=== PATIENT | female | born 1960 | race African-American/Black ===

== ENCOUNTER 2017-07-20 05:11 | Inpatient (IN) | payer OTHER ==
[2017-07-17 10:32] VITALS: BMI 37.2
[2017-07-20 12:41] LABS: INR 1.09 (0.82-1.09); PROTHROMBIN TIME (PATIENT) 12.3 SEC (9.7-13.0)
[2017-07-20] MEDS ORDERED: MIDAZOLAM HCL 2 MG/2 ML SINGLE DOSE VIAL ONE (18:26)
[2017-07-20] MEDS ORDERED: PROPOFOL 20 ML ONE ×8 (18:31→20:57)
[2017-07-20] MEDS ORDERED: KETAMINE HCL 200 MG/20 ML VIAL ONE (18:33)
[2017-07-20] MEDS ORDERED: ceFAZolin SODIUM 1 GM VIAL ONE (18:36)
[2017-07-20] MEDS ORDERED: VANCOMYCIN 1,000 MG VIAL (RESTRICTED TO ID ONLY) ONE (18:36)
[2017-07-20] MEDS ORDERED: DEXAMETHASONE SOD PHOSPHATE 4 MG/1 ML VIAL ONE (18:40)
[2017-07-20] MEDS ORDERED: ONDANSETRON 4 MG/2 ML VIAL IVPUSH PRN ×2 (18:48→21:26)
[2017-07-20] MEDS ORDERED: THROMBIN (BOVINE) 5,000 UNIT VIAL TP ONE ×2 (18:59→19:11)
[2017-07-20] MEDS ORDERED: LACTATED RINGERS SOLUTION 1,000 ML IV SCH (19:00)
[2017-07-20] MEDS ORDERED: GLYCOPYRROLATE 0.2 MG/1 ML VIAL ONE (19:34)
[2017-07-20] MEDS ORDERED: ceFAZolin SODIUM 1 GM VIAL IVPB ONE (19:41)
[2017-07-20] MEDS ORDERED: VANCOMYCIN 1,000 MG VIAL (RESTRICTED TO ID ONLY) IVPB ONE (19:43)
[2017-07-20] MEDS ORDERED: ePHEDrine SULFATE 50 MG/1 ML AMPULE ONE (19:44)
[2017-07-20] MEDS ORDERED: LIDOCAINE HCL/PF 2% SDV 5ML VIAL ONE (19:53)
--- NOTE | 2017-07-20 21:23 | OP ---
Operative Note - Note: Operative Date: 07/20/17 Pre-Operative Diagnosis: Cervical spondylotic myelopathy Operation: C4-C5 ACDF Surgeon: Jayce Miranda Assistant Men'S Lacrosse Coach: Anuj Miranda Anesthesiologist/GROUP CAPTAIN: Walter Madrigal Anesthesia: General Specimens Removed: C4-C5 disk Estimated Blood Loss (mls): 30 Fluid Volume Replaced (mls): 1,000 Operative Report Dictated: Yes
--- NOTE | 2017-07-20 21:25 | PN ---
Progress Note (short form) - Note Progress Note: 56F s/p C4-C5 ACDF POD #0. -Admit to ICU x 24 hrs. for airway observation; OK to downgrade to floor 2017 if airway stable. -Pain medication: per anaesthesia team. -DVT PPx: -Mechanical only: ERIK's, SCD's. -Incentive spirometry. -PT/OT/Rehab, OOB. -WBAT B/L UE & LE. -Keep dressing clean & dry. -No heavy lifting, bending or twisting. -Puree diet; advance as tolerated. -B/L UE & LE NV checks. -Care per primary medical hospitalist team. -Discharge planning: f/u [facility] [place] office 07/30/2017; call for appointment; . -Will follow. Jayce Miranda MD (Orthopaedic Surgery).
[2017-07-20] MEDS ORDERED: oxyCODONE HCL 5 MG TABLET PO PRN ×2 (21:26)
[2017-07-20] MEDS ORDERED: diazePAM CARPU-JECT 10 MG/2 ML DISP.SYRIN IVPUSH PRN (21:26)
[2017-07-20] MEDS ORDERED: traMADol HCL 50 MG TABLET PO PRN (21:26)
[2017-07-20] MEDS: HYDROmorphone *PCA* 10MG/50ML DISP.SYRIN PCA SCH (21:45)
[2017-07-20] MEDS ORDERED: HYDROmorphone *PCA* 10MG/50ML DISP.SYRIN PCA ONE (21:49)
[2017-07-20] MEDS ORDERED: diazePAM 5 MG TABLET PO PRN (22:54)
[2017-07-20] MEDS: LACTATED RINGERS SOLUTION 1,000 ML IV SCH (23:00)
--- NOTE | 2017-07-20 23:08 | CONSULT ---
Consult Consult Specialty:: pulm critical care Referred by:: Dr. Jayce Miranda Reason for Consultation:: s/p C4-C5 ACDF - History of Present Illness Chief Complaint: s/p C4-C5 ACDF POD #0 History of Present Illness: This is a 56 yo woman with pmhx of asthma, HTN, recent right knee injury at work, now in brace on workers comp, and worsening chronic neck pain over the course of two years despite injections and pain meds. She endorses right neck pain that radiates to her right arm and hand with associated numbness and tingling, and difficulty rotating her head. She is now s/p C4-C5 ACDF POD #[address] Miranda. transferred to ICU for further monitoring. -Tylenol IV PRN for pain -Incentive spirometry -PT/OT/Rehab, OOB -WBAT B/L UE & LE -B/L UE & LE NV checks -Keep dressing clean & dry -No heavy lifting, bending or twisting -Puree diet; advance as tolerated -DVT PPx:ERIK, SCD -Dispo: downgrade to floor tomorrow if airway stable - History Source History Provided By: Patient, Medical Record Limitations to Obtaining History: No Limitations - Past Medical History DEPUTY DIRECTOR: No: Alzheimer's, CVA, Dementia, Migraine, Multiple Sclerosis, Peripheral Neuropathy, Parkinson's, Seizure, Syncope, TIA, Vertigo, Other Cardio/Vascular: Yes: HTN Pulmonary: Yes: Asthma Gastrointestinal: No: Ascites, Cancer, Constipation, Crohn's Disease, Diverticulitis, Diverticulosis, Esophageal Varices, Gastritis, GERD, GI Bleed, Hemorrhoids, Hiatal Hernia, Inflamatory Bowel Disease, Irritable Bowel Disease, Pancreatitis, Peptic Ulcer Disease, Ulcerative Colitis, Other Hepatobiliary: No: Cirrhosis, Cholelithiasis, Cholecystitis, Choledocholithiasis , Hepatitis A, Hepatitis B, Hepatitis C, Other Renal/: No: Renal Failure, Renal Inusuff, BPH, Cancer, Hematuria, Hemodialysis , Neurogenic Bladder, Renal Calculi, UTI, Other Reproductive: Yes: Other (total abdominal hysterectomy) ...: No Heme/Onc: No: Anemia, B12 Deficiency, Bleeding Disorder, Cancer, Current Chemotherapy, Current Radiation Therapy, Hemochromatosis, Hypercoaguable State, Myeloproliferative Synd, Sickle Cell Disease, Sickle Cell Trait, Thrombocytopenia, Other Infectious Disease: No: AIDS, C-Diff, Herpes Zoster, HIV, MRSA, STD's, Tuberculosis, VREF, Other Psych: No: Addictions, Anxiety, Bipolar, Depression, Panic, Psychosis, Schizophrenia, Other Musculoskeletal: Yes: Other (rt knee injury s/p trauma from milk crate on workers comp) Rheumatology: No: Fibromyalgia, Gout, Lupus, Rheumatoid Arthritis, Sarcoidosis, Vasculitis, Other ENT: No: Allergic Rhinitis, Sinusitis, Other Endocrine: No: Heriberto's Disease, Dago's Disease, Diabetes Insipidus, Diabetes Mellitus, Hyperparathyroidism, Hyperthyroidism, Hypothyroidism, Osteopenia, SIADH, Other Dermatology: No: Basal Cell, Cellulitis, Eczema, Melanoma, Psoriasis, Squamous Cell, Other - Past Surgical History Past Surgical History: Yes: Hysterectomy - Alcohol/Substance Use Hx Alcohol Use: Yes (occ) History of Substance Use: reports: None - Smoking History Smoking history: Never smoked Have you smoked in the past 12 months: No - Social History Usual Living Arrangement: Alone ADL: Independent History of Recent Travel: No Home Medications - Allergies Allergies/Adverse Reactions: Allergies Allergy/AdvReac Type Severity Reaction Status Date / Time shellfish derived Allergy Severe Hives Verified 07/20/17 13:04 Penicillins Allergy Mild Verified 07/20/17 13:04 - Home Medications Home Medications: Ambulatory Orders Cholecalciferol (Vitamin D3) [Vitamin D3 -] 50,000 unit PO DAILY 07/17/17 Lisinopril 15 mg PO DAILY 07/17/17 Omeprazole 40 mg PO DAILY 07/17/17 Tiotropium [place] [Spiriva] 1 mcg IH PRN PRN 07/17/17 Family Disease History - Family Disease History Family History: Unremarkable Review of Systems - Review of Systems Constitutional: reports: No Symptoms Eyes: reports: No Symptoms HENT: reports: No Symptoms Neck: reports: Pain on Movement, Stiffness Cardiovascular: reports: No Symptoms Respiratory: reports: No Symptoms Gastrointestinal: reports: No Symptoms Genitourinary: reports: No Symptoms Breasts: reports: No Symptoms Reported Integumentary: reports: No Symptoms Neurological: reports: No Symptoms, Numbness, Parasthesia, Other (tingling of right hand and arm) Endocrine: reports: No Symptoms Hematology/Lymphatic: reports: No Symptoms Psychiatric: reports: No Symptoms Physical Exam Vital Signs: Vital Signs Temperature 97.9 F 07/20/17 21:31 Pulse Rate 76 07/20/17 22:45 Respiratory Rate 18 07/20/17 22:45 Blood Pressure 146/82 07/20/17 22:45 O2 Sat by Pulse Oximetry (%) 100 07/20/17 22:45 Constitutional: Yes: Well Nourished, No Distress, Calm Eyes: Yes: WNL, Conjunctiva Clear, EOM Intact HENT: Yes: WNL, Atraumatic, Normocephalic Neck: Yes: WNL, Supple, Trachea Midline, Decreased ROM Cardiovascular: Yes: WNL, Regular Rate and Rhythm Respiratory: Yes: WNL, Regular, CTA Bilaterally Gastrointestinal: Yes: WNL, Normal Bowel Sounds ...Rectal Exam: Yes: WNL Renal/: Yes: WNL Breast(s): Yes: WNL Musculoskeletal: Yes: WNL Extremities: Yes: WNL Edema: No Peripheral Pulses WNL: Yes Integumentary: Yes: WNL Wound/Incision: Yes: Clean/Dry Neurological: Yes: WNL, Alert, Oriented. No: Numbness, Tingling ...Motor Strength: WNL Psychiatric: Yes: WNL Imaging - Results MRI: Report Reviewed (MRI CERVICAL SPINE: 06/11/17 shows straightening of the cervical lordosis, no compression fx, c3-4 small broad based central disc protrusion, c4-5 mild diffuse bulge with small focal superimposed central disc protrusion, c5-6 mild diffuse bulge which causes mild compression of the ventral aspect of the derick sac, c6-7 mild endplate degenerative changes which have increased from previous exam.) Problem List - Problems (1) Asthma Code(s): J45.909 - UNSPECIFIED ASTHMA, UNCOMPLICATED (2) Cervical spondylosis with myelopathy Code(s): M47.12 - OTHER SPONDYLOSIS WITH MYELOPATHY, CERVICAL REGION (3) S/P cervical discectomy Code(s): Z98.890 - OTHER SPECIFIED POSTPROCEDURAL STATES (4) Chronic hypotension Code(s): I95.89 - OTHER HYPOTENSION (5) Hypertension Code(s): I10 - ESSENTIAL (PRIMARY) HYPERTENSION
[2017-07-20] MEDS: ACETAMINOPHEN 325 MG TABLET (FP) PO SCH (23:35)
[2017-07-20] MEDS ORDERED: ACETAMINOPHEN 1000 MG/100 ML VIAL (NON FORMULARY) IVPB ONE (23:50)
[2017-07-21] MEDS: ceFAZolin 2 GRAM PREMIX BAG IVPB SCH ×2 (03:29→11:18)
[2017-07-21] MEDS: ACETAMINOPHEN 325 MG TABLET (FP) PO SCH ×3 (06:18→11:19)
[2017-07-21 06:45] LABS: HEMATOCRIT 36.4 % (32.4-45.2); HEMOGLOBIN 12.2 GM/dL (10.7-15.3); MCH 30.4 pg (25.7-33.7); MCHC 33.5 g/dl (32.0-36.0); MEAN CELL VOLUME 90.8 fl (80-96); MEAN PLT VOLUME 9.5 fl (7.5-11.1); PLATELET COUNT 278 K/MM3 (134-434); RBC 4.01 M/mm3 (3.60-5.2); RDW 14.6 % (11.6-15.6); WHITE BLOOD COUNT 10.1 K/mm3 (4.0-10.0)
[2017-07-21 07:07] LABS: CHLORIDE 101 mmol/L (98-107); POTASSIUM 4.3 mmol/L (3.5-5.1); SODIUM 136 mmol/L (136-145)
[2017-07-21 07:13] LABS: ANION GAP 7 (8-16); BLOOD UREA NITROGEN 14 mg/dL (7-18); CALCIUM 9.3 mg/dL (8.5-10.1); CO2 28 mmol/L (21-32); CREATININE 0.7 mg/dL (0.55-1.02); GLUCOSE,RANDOM 142 mg/dL (74-106)
[2017-07-21] MEDS ORDERED: ACETAMINOPHEN 1000 MG/100 ML VIAL (NON FORMULARY) IVPB ONE (07:29)
[2017-07-21] MEDS ORDERED: PT OWN MED DRAWER 7, Y5N ONE (09:35)
--- NOTE | 2017-07-21 09:55 | OP ---
DATE OF OPERATION: 07/20/2017 SURGEON: Jayce Miranda M.D. CONTENT STRATEGY LEAD: Anuj Miranda M.D. 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 OPERATION PERFORMED: 1. C4-5 anterior cervical diskectomy and fusion. 2. Partial corpectomy C4, partial corpectomy C5. ANESTHESIA: General. ANTIBIOTICS GIVEN: 2 g Kefzol, 1 g vancomycin, and 10 mg Decadron preoperative. OPERATION DETAILS: Patient correctly identified, brought in the operating room. Imaging was available for intraoperative evaluation. The cervical spine was prepped in a routine manner with Betadine scrub solution, wiped with alcohol, Duraprep applied. Window drape applied. The incision was made in the lines of Reji at the cricothyroid interval. The dissection was taken through to the platysma, the platysma was split longitudinally, and the investing layer of fascia opened with a Metzenbaum scissors. The area was dissected freely, and the plane between the viscera and vessels entered with digital palpation, right down to the anterior vertebral bodies with no difficulty. An Army-Olivarez was placed around the pharynx and larynx, a Cloward handheld retractor onto the longus colli on the lateral side. Using a unipolar Bovie, the longus colli was lifted off the bone bed of C4 and C5 appropriately, and a 90 degree spinal needle placed into the C4-5 disk, verifying the level of fixation. Two [place] pins were placed, one in C4 and one in C5 in the vertebral bodies. These were once again checked with lateral fluoroscopic x-ray and positioned well. Slight distraction employed under the microscope. The annulus was transected off the bone. The curettage and curetting of the bone was with a small curet, extending from left to right, revealing the jori lo typical appearance of the anterior interbody vertebral space once freed of all disk material. Using a 40-mm Midas Roberto bur, the lip of the anterior aspect of the C4 level was resected, right down to the disk level, and then likewise the uncovertebral joints on the upper endplate of C5 resected to create the rectangle necessary for appropriate exposure. The entire posterior longitudinal ligament was resected, exposing thecal from left to right. A partial corpectomy had been performed in order to achieve this clear vision appropriately in resection of these rectangles. Once this had been placed, the distraction enabled us to seat a Tetrafuse size 8 mm spacer, this was filled DBM putty. The plate was a size 40 mm Simplicity plate, 4 screws inserted, two proximally and two distally, solid fixation achieved, the locking device mobilized on the screw head. The wound was washed thoroughly, hemostasis thoroughly achieved. Closure investing lateral fascia and platysma 1 Vicryl, skin 3-0 Monocryl and Steri-Strips. No drains. Operation went well with no complications. MD ASAD Webber/[id number]
[2017-07-21] MEDS ORDERED: TIOTROPIUM BROMIDE 18 MCG CAPSULES IH SCH (10:00)
[2017-07-21] MEDS ORDERED: LISINOPRIL 5 MG TABLET (FP) PO SCH (10:00)
[2017-07-21] MEDS ORDERED: PANTOPRAZOLE 40 MG TABLET (FP) PO SCH (10:00)
--- NOTE | 2017-07-21 10:15 | PN ---
Physical Exam: SUBJECTIVE: Patient seen and examined oob to chair in ICU. Vomiting. OBJECTIVE: Vital Signs Period Temp Pulse Resp BP Sys/Bird Pulse Ox Last 24 Hr 97.8 F-98.4 F 62-88 11-20 108-155/66-95 78-100 GENERAL: The patient is awake, alert, and fully oriented, in mild distress from nausea and vomiting. NECK: Anterior neck surgical dressing c/d/i, not disturbed; airway patent, voice is clear and strong, no hoarseness LUNGS: Breath sounds equal, clear to auscultation bilaterally, no wheezes, no crackles, no accessory muscle use. HEART: Regular rate and rhythm, S1, S2 EXTREMITIES: 2+ pulses, warm, well-perfused, no edema. NEUROLOGICAL: Cranial nerves II through XII grossly intact. Normal speech, gait not observed. Laboratory Results - last 24 hr 07/20/17 07/20/17 07/20/17 12:13 12:13 12:13 WBC RBC Hgb Hct MCV MCH MCHC RDW Plt Count MPV PT with INR 12.30 INR 1.09 PTT (Actin FS) 37.2 H Sodium Potassium Chloride Carbon Dioxide Anion Gap BUN Creatinine Random Glucose Calcium Blood Type O POSITIVE Antibody Screen Negative Crossmatch See Detail 07/21/17 07/21/17 05:25 05:25 WBC 10.1 H RBC 4.01 Hgb 12.2 Hct 36.4 MCV 90.8 MCH 30.4 MCHC 33.5 RDW 14.6 Plt Count 278 MPV 9.5 PT with INR INR PTT (Actin FS) Sodium 136 Potassium 4.3 Chloride 101 Carbon Dioxide 28 Anion Gap 7 L BUN 14 Creatinine 0.7 Random Glucose 142 H Calcium 9.3 Blood Type Antibody Screen Crossmatch Active Medications Generic Name Dose Route Start Last Admin Trade Name Freq PRN Reason Stop Dose Admin Acetaminophen 650 mg 07/20/17 23:15 07/21/17 07:25 Tylenol - PO 07/23/17 17:16 Not Given Q6H ABIOLA Cefazolin Sodium/Dextrose 2 gm 07/21/17 03:30 07/21/17 03:29 Ancef 2 Gm Premixed Ivpb - IVPB 07/21/17 11:31 2 gm Q8H ABIOLA Administration Diazepam 5 mg 07/20/17 22:54 Valium - PO Q8H PRN MUSCLE SPASMS Hydromorphone HCl 10 mg 07/20/17 19:00 07/20/17 21:45 Dilaudid Medicaid Billing Clerk - BILLIARD PARLOR MANAGER 07/27/17 18:48 10 mg BILLIARD PARLOR MANAGER ABIOLA Administration Protocol Lactated Ringer's 1,000 mls @ 100 mls/hr 07/20/17 21:30 07/20/17 23:00 Lactated Ringers Solution IV 100 mls/hr ASDIR ABIOLA Administration Ondansetron HCl 4 mg 07/20/17 18:48 07/21/17 06:29 Zofran Injection IVPUSH 4 mg Q6H PRN Administration NAUSEA AND/OR VOMITING Ondansetron HCl 4 mg 07/20/17 21:26 Zofran Injection IVPUSH Q6H PRN NAUSEA AND/OR VOMITING Oxycodone HCl 5 mg 07/20/17 21:26 Roxicodone - PO Q4H PRN PAIN LEVEL 6-10 Oxycodone HCl 10 mg 07/20/17 21:26 Roxicodone - PO Q4H PRN PAIN LEVEL 7 - 10 Pantoprazole Sodium 40 mg 07/21/17 10:00 07/21/17 09:30 Protonix - PO 40 mg DAILY ABIOLA Administration Tiotropium [place] 1 puff 07/21/17 10:00 07/21/17 09:30 Spiriva - IH 1 inh DAILY ABIOLA Administration Tramadol HCl 50 mg 07/20/17 21:26 Ultram - PO Q6H PRN PAIN LEVEL 4 - 6 ASSESSMENT/PLAN 56 year-old female with a PMH significant for HTN, asthma, and cervical spondylotic myelopathy. . Cervical spondylotic myelopathy s/p C4-C5 ACDF on 07/20 --POD #1 --perioperative antibiotics per surgery --pain management per anesthesia; Zofran for vomiting (QTc 427) --increase IV fluids Hypertension --continue lisinopril Asthma --continue Spiriva FEN Fluids: LR@125mL/hr Electrolytes: replete as indicated Nutrition: NPO until vomiting resolves DVT prophylaxis: TEDs, oob, ambulation Physical therapy Dispo: continues to require inpatient care. Full code. Visit type - Emergency Visit Emergency Visit: Yes ED Registration Date: 07/20/17 Care time: The patient presented to the Emergency Department on the above date and was hospitalized for further evaluation of their emergent condition. - New Patient This patient is new to me today: Yes Date on this admission: 07/21/17 - Critical Care Critical Care patient: No
[2017-07-21] MEDS: LACTATED RINGERS SOLUTION 1,000 ML IV SCH ×2 (11:18→16:20)
[2017-07-21] MEDS ORDERED: ONDANSETRON 4 MG/2 ML VIAL IVPUSH PRN ×2 (13:12)
[2017-07-21] MEDS ORDERED: LACTATED RINGERS SOLUTION 1,000 ML IV SCH (13:12)
[2017-07-21] MEDS ORDERED: diazePAM 5 MG TABLET PO PRN (13:12)
[2017-07-21] MEDS ORDERED: oxyCODONE HCL 5 MG TABLET PO PRN ×2 (13:12)
[2017-07-21] MEDS ORDERED: traMADol HCL 50 MG TABLET PO PRN (13:12)
[2017-07-21] MEDS ORDERED: LISINOPRIL 10 MG TABLET (FP) PO SCH (13:15)
--- NOTE | 2017-07-21 13:26 | PN ---
Progress Note (short form) - Note Progress Note: Anesthesia/Pain Pt seen and examined S:Alert and awake comfortable O: Vital Signs Temperature 97.8 F 07/21/17 08:00 Pulse Rate 60 07/21/17 12:00 Respiratory Rate 18 07/21/17 12:00 Blood Pressure 144/87 07/21/17 12:00 O2 Sat by Pulse Oximetry (%) 96 07/21/17 09:00 CBC, BMP 07/21/17 05:25 07/21/17 05:25 A/P: s/p Current Active Problems Asthma (Acute) Cervical spondylosis with myelopathy (Acute) Chronic hypotension (Acute) Hypertension (Acute) S/P cervical discectomy (Acute) Doing well post op uses HOT METAL MIXER OPERATOR Continue current care Igor Booth MD
[2017-07-21] MEDS: HYDROmorphone *PCA* 10MG/50ML DISP.SYRIN PCA SCH (15:49)
[2017-07-21] MEDS: LISINOPRIL 10 MG TABLET (FP) PO SCH (15:51)
[2017-07-21] MEDS ORDERED: ACETAMINOPHEN 325 MG TABLET (FP) PO PRN (16:01)
[2017-07-21] MEDS ORDERED: ACETAMINOPHEN 325 MG TABLET (FP) PO SCH (17:15)
[2017-07-22] MEDS: LACTATED RINGERS SOLUTION 1,000 ML IV SCH ×3 (05:05→18:48)
[2017-07-22] MEDS: HYDROmorphone *PCA* 10MG/50ML DISP.SYRIN PCA SCH ×3 (06:16→17:27)
[2017-07-22 08:12] LABS: BASO % 0.5 % (0-2.0); EOS % 0.3 % (0-4.5); HEMATOCRIT 33.4 % (32.4-45.2); HEMOGLOBIN 11.2 GM/dL (10.7-15.3); LYMPH % 25.1 % (8-40); MCH 30.7 pg (25.7-33.7); MCHC 33.5 g/dl (32.0-36.0); MEAN CELL VOLUME 91.7 fl (80-96); MEAN PLT VOLUME 9.6 fl (7.5-11.1); MONO % 8.5 % (3.8-10.2); NEUT % 65.6 % (42.8-82.8); PLATELET COUNT 257 K/MM3 (134-434); RBC 3.65 M/mm3 (3.60-5.2); RDW 14.6 % (11.6-15.6); WHITE BLOOD COUNT 10.4 K/mm3 (4.0-10.0)
[2017-07-22 08:34] LABS: ALBUMIN 3.1 g/dl (3.4-5.0); ALK PHOS 68 U/L (45-117); ANION GAP 6 (8-16); BILIRUBIN,TOTAL 0.4 mg/dL (0.2-1.0); BLOOD UREA NITROGEN 12 mg/dL (7-18); CALCIUM 8.5 mg/dL (8.5-10.1); CHLORIDE 104 mmol/L (98-107); CO2 31 mmol/L (21-32); CREATININE 0.7 mg/dL (0.55-1.02); GLUCOSE,RANDOM 83 mg/dL (74-106); MAGNESIUM 2.1 mg/dL (1.8-2.4); SGOT/AST 22 U/L (15-37); SGPT/ALT 19 U/L (12-78); SODIUM 141 mmol/L (136-145); TOT PROT 6.5 g/dl (6.4-8.2)
[2017-07-22] MEDS: TIOTROPIUM BROMIDE 18 MCG CAPSULES IH SCH (10:19)
[2017-07-22] MEDS: PANTOPRAZOLE 40 MG TABLET (FP) PO SCH (10:19)
[2017-07-22] MEDS: LISINOPRIL 10 MG TABLET (FP) PO SCH (10:19)
[2017-07-22] MEDS ORDERED: ACETAMINOPHEN 1000 MG/100 ML VIAL (NON FORMULARY) IVPB PRN (10:44)
[2017-07-22] MEDS ORDERED: METOCLOPRAMIDE HCL INJECTION 10 MG/2 ML VIAL IVPUSH PRN (10:48)
--- NOTE | 2017-07-22 10:48 | PN ---
Progress Note (short form) - Note Progress Note: Post op day#2.Patient stable and c/o pain score of 6-7/10 on Dilaudid sprinkler worker.Will Add Ofirmev iv.Also c/o nausia .She is on Zofran and will Add Reglan to it.Will continue COMPO CONVEYOR OPERATOR today and will f/u tomorrow.
[2017-07-22] MEDS ORDERED: BISACODYL 10 MG SUPP.RECT RC PRN (15:47)
--- NOTE | 2017-07-22 17:52 | PN ---
Physical Exam: SUBJECTIVE: Patient seen and examined at bedside. Nausea and vomiting are better , tolerating small amounts of clear liquids. Pain to posterior neck is tolerable. No difficulty swallowing. OBJECTIVE: Vital Signs Period Temp Pulse Resp BP Sys/Bird Pulse Ox Last 24 Hr 98.2 F-99.6 F 53-83 16-20 118-147/57-87 97 GENERAL: The patient is awake, alert, and fully oriented, in no apparent distress. NECK: Anterior neck surgical dressing c/d/i, not disturbed; airway patent, voice is clear and strong, no hoarseness LUNGS: Breath sounds equal, clear to auscultation bilaterally, no wheezes, no crackles, no accessory muscle use. HEART: Regular rate and rhythm, S1, S2 EXTREMITIES: 2+ pulses, warm, well-perfused, no edema. NEUROLOGICAL: Cranial nerves II through XII grossly intact. Normal speech, gait not observed. Laboratory Results - last 24 hr 07/22/17 07/22/17 07:20 07:20 WBC 10.4 H RBC 3.65 Hgb 11.2 Hct 33.4 MCV 91.7 MCH 30.7 MCHC 33.5 RDW 14.6 Plt Count 257 MPV 9.6 Absolute Neuts (auto) 6.8 Neutrophils % 65.6 Lymphocytes % 25.1 Monocytes % 8.5 Eosinophils % 0.3 Basophils % 0.5 Nucleated RBC % 0 Sodium 141 Potassium 4.0 Chloride 104 Carbon Dioxide 31 Anion Gap 6 L BUN 12 Creatinine 0.7 Creat Clearance w eGFR > 60 Random Glucose 83 Calcium 8.5 Magnesium 2.1 Total Bilirubin 0.4 AST 22 ALT 19 Alkaline Phosphatase 68 Total Protein 6.5 Albumin 3.1 L Active Medications Generic Name Dose Route Start Last Admin Trade Name Freq PRN Reason Stop Dose Admin Acetaminophen 650 mg 07/21/17 16:01 Tylenol - PO 07/23/17 17:16 Q6H PRN PAIN LEVEL 1 - 3 Acetaminophen 1,000 mg 07/22/17 10:44 Ofirmev Injection - IVPB Q6H PRN PAIN LEVEL 6-10 Bisacodyl 10 mg 07/22/17 15:47 Dulcolax Suppository - RC PRN PRN CONSTIPATION Diazepam 5 mg 07/21/17 13:12 Valium - PO Q8H PRN MUSCLE SPASMS Docusate Sodium 300 mg 07/22/17 22:00 Colace - PO HS ABIOLA Hydromorphone HCl 10 mg 07/21/17 13:12 07/22/17 17:27 Dilaudid Motor Vehicle Assembler - HOSIERY OPERATOR 07/27/17 18:48 Not Given HOSIERY OPERATOR [facility] Protocol Lactated Ringer's 1,000 mls @ 125 mls/hr 07/21/17 16:01 07/22/17 10:58 Lactated Ringers Solution IV 125 mls/hr ASDIR ABIOLA Administration Lisinopril 10 mg 07/21/17 13:15 07/22/17 10:19 Prinivil PO 10 mg DAILY ABIOLA Administration Metoclopramide HCl 10 mg 07/22/17 10:48 Reglan Injection - IVPUSH Q8H PRN NAUSEA AND/OR VOMITING Ondansetron HCl 4 mg 07/21/17 13:12 07/22/17 08:29 Zofran Injection IVPUSH 4 mg Q6H PRN Administration NAUSEA AND/OR VOMITING Oxycodone HCl 5 mg 07/21/17 13:12 07/21/17 18:43 Roxicodone - PO 5 mg Q4H PRN Administration PAIN LEVEL 6-10 Oxycodone HCl 10 mg 07/21/17 13:12 Roxicodone - PO Q4H PRN PAIN LEVEL 7 - 10 Pantoprazole Sodium 40 mg 07/22/17 10:00 07/22/17 10:19 Protonix - PO 40 mg DAILY ABIOLA Administration Polyethylene Glycol 17 gm 07/22/17 22:00 Miralax (For Daily Use) - PO BID [facility] Tiotropium [place] 1 puff 07/22/17 10:00 07/22/17 10:19 Spiriva - IH 1 inh DAILY ABIOLA Administration Tramadol HCl 50 mg 07/21/17 13:12 Ultram - PO Q6H PRN PAIN LEVEL 4 - 6 ASSESSMENT/PLAN 56 year-old female with a PMH significant for HTN, asthma, and cervical spondylotic myelopathy. Cervical spondylotic myelopathy s/p C4-C5 ACDF on 07/20 --POD #2 --perioperative antibiotics per surgery --HOSIERY OPERATOR not renewed this evening; PO pain meds adequate; Zofran PRN Hypertension --continue lisinopril Asthma --continue Spiriva FEN Fluids: PO intake adequate Electrolytes: replete as indicated Nutrition: full liquids breakfast, regular for lunch as tolerated DVT prophylaxis: TEDs, oob, ambulation Physical therapy Dispo: continues to require inpatient care. Full code. Visit type - Emergency Visit Emergency Visit: Yes ED Registration Date: 07/20/17 Care time: The patient presented to the Emergency Department on the above date and was hospitalized for further evaluation of their emergent condition. - New Patient This patient is new to me today: No - Critical Care Critical Care patient: No
--- NOTE | 2017-07-22 18:41 | PATH ---
Surgical Pathology Report Patient Name: BLANCA PEARSON [facility]. Rec. #: [id number] /Age/Gender: 1960 (Age: 56) / F Account: [id number] Location: [address] [place] [address]/[facility] Taken: 07/20/2017 Received: 07/21/2017 Reported: 07/22/2017 Physicians: Jayce Miranda M.D. Specimen(s) Received C4/5 DISC Clinical History Other cervical disc degeneration Final Diagnosis C4/C5 DISC, DISCECTOMY: CARTILAGINOUS TISSUE WITH DEGENERATIVE CHANGE. Electronically Signed Florina Alcocer M.D. Gross Description Received in formalin labeled "C4/5 disc," is a 2.5 x 2.5 x 0.3 cm aggregate of sifuentes fragments of fibrocartilaginous tissue. A claims representative portion is submitted in one cassette. /07/21/2017 [facility]07/21/2017
[2017-07-22] MEDS: POLYETHYLENE GLYCOL 3350 119 GM BTL PO SCH (21:54)
[2017-07-22] MEDS ORDERED: DOCUSATE SODIUM 100 MG CAPSULE (FP) PO SCH (22:00)
[2017-07-23 07:24] LABS: BASO % 0.6 % (0-2.0); EOS % 0.4 % (0-4.5); HEMATOCRIT 31.7 % (32.4-45.2); HEMOGLOBIN 10.8 GM/dL (10.7-15.3); LYMPH % 27.9 % (8-40); MCH 30.8 pg (25.7-33.7); MCHC 34.1 g/dl (32.0-36.0); MEAN CELL VOLUME 90.4 fl (80-96); MEAN PLT VOLUME 9.1 fl (7.5-11.1); MONO % 10.4 % (3.8-10.2); NEUT % 60.7 % (42.8-82.8); PLATELET COUNT 251 K/MM3 (134-434); RBC 3.51 M/mm3 (3.60-5.2); RDW 14.2 % (11.6-15.6); WHITE BLOOD COUNT 10.3 K/mm3 (4.0-10.0)
[2017-07-23 08:30] LABS: CHLORIDE 103 mmol/L (98-107); POTASSIUM 3.8 mmol/L (3.5-5.1); SODIUM 140 mmol/L (136-145)
[2017-07-23] MEDS ORDERED: PT OWN MED DRAWER 7, Y5N ONE (09:07)
[2017-07-23 09:13] LABS: ALBUMIN 2.8 g/dl (3.4-5.0); ALK PHOS 61 U/L (45-117); ANION GAP 9 (8-16); BILIRUBIN,TOTAL 0.5 mg/dL (0.2-1.0); BLOOD UREA NITROGEN 9 mg/dL (7-18); CALCIUM 8.9 mg/dL (8.5-10.1); CO2 28 mmol/L (21-32); CREATININE 0.6 mg/dL (0.55-1.02); GLUCOSE,RANDOM 70 mg/dL (74-106); MAGNESIUM 2.1 mg/dL (1.8-2.4); SGOT/AST 18 U/L (15-37); SGPT/ALT 16 U/L (12-78); TOT PROT 6.1 g/dl (6.4-8.2)
[2017-07-23] MEDS: POLYETHYLENE GLYCOL 3350 119 GM BTL PO SCH (09:19)
[2017-07-23] MEDS: LISINOPRIL 10 MG TABLET (FP) PO SCH (09:19)
[2017-07-23] MEDS: PANTOPRAZOLE 40 MG TABLET (FP) PO SCH (09:19)
[2017-07-23] MEDS: TIOTROPIUM BROMIDE 18 MCG CAPSULES IH SCH (09:19)
--- NOTE | 2017-07-23 10:46 | PN ---
Progress Note (short form) - Note Progress Note: Post op day#3.Patient stable and comfortable.Dilaudid service establishment attendant was dc yesterday.Patient has little pain for which she is on po medication.No any anesthesia related problem.Patient Dc from the anesthesia care.
--- NOTE | 2017-07-23 11:41 | DS ---
Physical Examination Vital Signs: Vital Signs Temperature 98.6 F 07/23/17 05:30 Pulse Rate 70 07/23/17 05:30 Respiratory Rate 18 07/23/17 05:30 Blood Pressure 139/76 07/23/17 05:30 O2 Sat by Pulse Oximetry (%) 98 07/22/17 21:00 Labs: CBC, BMP 07/23/17 06:30 07/23/17 06:30 Discharge Summary Reason For Visit: OTHER CERVICAL DISC DEGENERATION Current Active Problems Asthma (Acute) Cervical spondylosis with myelopathy (Acute) Chronic hypotension (Acute) Hypertension (Acute) S/P cervical discectomy (Acute) Condition: Stable - Instructions Diet, Activity, Other Instructions: Please return to the ED with new, persistent, or worsening symptoms. Physical activity No heavy lifting or exercise until seen by your surgeon. You may walk unlimited amounts of and climb stairs. Diet There are no dietary restrictions. Eat healthy, high-fiber foods. Drink 6 to 8 glasses of liquid each day. This will assist in keeping your bowels are regular. Pain management You may take Oxycodone or Tylenol for pain. Continue taking Colace while you are on the narcotic. Call Dr. Miranda for any of the following: Severe pain not relieved by medication Fever of 101 or higher Excessive bleeding or drainage on dressing Inability to urinate Referrals: Jayce Miranda MD [Staff Physician] - (Please follow-up with Dr. Miranda in the [place] office on 07/30/2017. Please call to schedule an appointment. ) Blake Ray MD [Staff Physician] - 1 Week Disposition: HOME - Home Medications Comprehensive Discharge Medication List: Ambulatory Orders Cholecalciferol (Vitamin D3) [Vitamin D3 -] 50,000 unit PO DAILY 07/17/17 Lisinopril 15 mg PO DAILY 07/17/17 Omeprazole 40 mg PO DAILY 07/17/17 Tiotropium [place] [Spiriva] 1 mcg IH PRN PRN 07/17/17
[2017-07-23 11:54] VITALS: PULSE 72
[2017-07-23 14:13] VITALS: BP 135/97; TEMP 99
== END 2017-07-23 14:28 | disposition home or self-care (01) | DRG 473 ==
LOC: JSAMEDAYSX 05:11 → EDSTATUS 08:00 → JICU 22:54 → J6S 07-21 13:38
PROVIDERS: ADMIT Orthopaedic Surgery Orthopaedic Surgery of the Spine; ATTEND Registered Nurse
PROC: 0RG10A0 Fusion of Cervical Vertebral Joint with Interbody Fusion Device, Anterior Approach, Anterior Column, Open Approach (ICD-10-PCS; 2017-07-20)
PROC: 0RT30ZZ Resection of Cervical Vertebral Disc, Open Approach (ICD-10-PCS; principal; 2017-07-20 14:40)
DX: M47.12 Other spondylosis with myelopathy, cervical region (principal); M48.02 Spinal stenosis, cervical region; I10 Essential (primary) hypertension; J45.909 Unspecified asthma, uncomplicated; M54.2 Cervicalgia; I95.89 Other hypotension
CPT/HCPCS: 36415; 76000-TC-FY; 80048; 80053; 83735; 85025; 85027; 85610; 85730; 86850; 86900; 86901; 86922; 88304-TC; 94760; 97116-GP; 97161-GP; J0131